=== PATIENT | female | born 1970 | race Hispanic/Latino ===

== ENCOUNTER → 2017-11-29 | Day surgery (SDC) | payer OTHER ==
--- NOTE | 2017-11-29 13:09 | Operative Report ---
Operative/Inv Procedure Report Surgery Date: 11/29/17 Name of Procedure: DNC CRYROABLATION UNDER US Pre-Operative Diagnosis: MENNORAGHIA DNC cryoablation under ultrasound guidance Post-Operative Diagnosis: SAME Estimated Blood Loss: 50ml to 100ml Surgeon/Major Assembly Lineman: Chiara Faith MD Anesthesia: moderate sedation Operative/Procedure Note Note: Procedure note patient was taken to the operating room placed supine position after adequate induction of anesthesia patient placed in dorsolithotomy position the vagina was prepped and draped so fashion examination under anesthesia performed CO2 tenaculum was placed on the Intralipid cervix at this point. The cervix was dilated to 29 Hegar to allow for the insertion of sharp curet a Don[place] curette was used for the endocervical curettage sharp curettage the endometrial lining was performed 2 specimen sent to pathology this point the bladder was filled approximately 250 mL normal saline to allow for ultrasonography during the case the probe was inserted under ultrasound guidance was approximately 8 minutes of cryo-probe was heated and removed on since removed from the vagina the counts correct the patient was awakened from anesthesia and transferred recovery room awake alert counts correct
--- NOTE | 2017-11-29 16:41 | ULTRASOUND REPORT ---
EXAMINATION: US INTRAOPERATIVE CLINICAL INFORMATION: Cryoablation performed in operating room. Menometrorrhagia. COMPARISON: None TECHNIQUE: Intraoperative, nondiagnostic sonographic imaging of the pelvis was performed using a curved, 5 MHz transabdominal transducer. A total of 9 sagittal images of the uterus are submitted into the electronic picture archive. FINDINGS: Intraoperative sonographic imaging of the pelvis was performed at time of cryoablation. Please refer to the operative report. This is not a diagnostic examination. IMPRESSION: Sonographic assistance provided to the operating room.
== END ==
LOC: STS 01:50
DX: N92.1 Excessive and frequent menstruation with irregular cycle (principal)
CPT/HCPCS: 76998; 81025; J0131; J2250